=== PATIENT | female | born 1985 | race Caucasian/White ===

== ENCOUNTER 2019-11-22 14:57 | Inpatient (IN) | payer MEDICAID ==
[~2019-11-22] VITALS: Ht 165.1 cm; Wt 81.6 kg
[2019-11-22] MEDS ORDERED: OXYTOCIN 20 UNITS in LACTATED RINGERS 1,000 ML IV SCH (15:30)
[2019-11-22] MEDS ORDERED: MORPHINE SULFATE 10 MG/ML VIAL IVP PRN (15:30)
[2019-11-22] MEDS ORDERED: METHYLERGONOVINE 0.2 MG/ML AMP IM PRN ×2 (15:30→22:45)
[2019-11-22] MEDS ORDERED: LACTATED RINGERS 1,000 ML IV SCH (15:30)
[2019-11-22] MEDS ORDERED: PROMETHAZINE 25 MG/ML VIAL IVP PRN (15:30)
[2019-11-22] MEDS ORDERED: OXYTOCIN 10 UNITS/ML VIAL IM SCH (15:30)
[2019-11-22] MEDS ORDERED: CARBOPROST 250 MCG/ML AMP IM PRN (15:30)
[2019-11-22 16:40] LABS: APPEARANCE,URINE CLEAR (CLEAR); BILIRUBIN,URINE NEGATIVE (NEGATIVE); BLOOD, URINE NEGATIVE (NEGATIVE); COLOR,URINE YELLOW (YELLOW); LEUKOCYTE ESTERASE ,URINE NEGATIVE (NEGATIVE); NITRITE, URINE NEGATIVE (NEGATIVE); UGLUCOSE NEGATIVE (NEGATIVE)
[2019-11-22 16:43] LABS: BASOPHILS % (AUTO) 0.3 % (0.0-2.0); EOSINOPHILS # (AUTO) 0.1 K/uL (0-0.4); EOSINOPHILS % (AUTO) 0.8 % (0.0-4.0); HEMATOCRIT 39.7 % (36-48); HEMOGLOBIN 13.5 g/dL (12.0-16.0); LYMPHOCYTES # (AUTO) 2.5 K/uL (2.5-16.5); LYMPHOCYTES % (AUTO) 25.1 % (20.5-51.1); MEAN CORPUSCULAR HEMOGLOBIN 31 pg (27-31); MEAN CORPUSCULAR HGB CONC 34 g/dL (33-37); MEAN CORPUSCULAR VOLUME 91.3 fL (80-94); MONOCYTES # (AUTO) 0.6 K/uL (0.8-1.0); MONOCYTES % (AUTO) 6.2 % (1.7-9.3); NEUTROPHILS # (AUTO) 6.8 K/uL (1.8-7.7); NEUTROPHILS % (AUTO) 67.6 % (42.2-75.2); PLATELET COUNT (AUTO) 220 K/uL (140-450); RED BLOOD CELL COUNT(AUTO) 4.35 MIL/uL (4.20-5.40); RED CELL DISTRIBUTION WIDTH 13.3 % (11.6-13.7); WHITE BLOOD COUNT (AUTO) 10.1 K/uL (4.8-10.8)
[2019-11-22 16:54] LABS: ALBUMIN 2.7 g/dL (3.4-5.0); ANION GAP 15.5 (8-16); CARBON DIOXIDE 23.3 mmol/L (21-32); CREATININE 0.8 mg/dL (0.6-1.3); POTASSIUM 3.8 mmol/L (3.5-5.1); TOTAL BILIRUBIN 0.3 mg/dL (0.0-1.0)
[2019-11-22] MEDS ORDERED: OXYTOCIN 20 UNITS/LR PREMIX 1,000 ML IV ONE (20:44)
[2019-11-22] MEDS ORDERED: LIDOCAINE 1% 500 MG/50 ML VIAL ONE (22:29)
[2019-11-22] MEDS ORDERED: HYDROcodone/APAP 5/325 MG 1 TAB TAB PO PRN (22:45)
[2019-11-22] MEDS ORDERED: BENZOCAINE/MENTHOL 20%-0.5% 60 GM CAN TP PRN (22:45)
[2019-11-22] MEDS ORDERED: METHYLERGONOVINE 0.2 MG TAB PO PRN (22:45)
[2019-11-22] MEDS ORDERED: OXYTOCIN 10 UNITS/ML VIAL IM PRN (22:45)
[2019-11-22] MEDS ORDERED: SODIUM PHOSPHATE 118 ML ENEM RC PRN (22:45)
[2019-11-22] MEDS ORDERED: TEMAZEPAM 15 MG CAP PO PRN (22:45)
[2019-11-22] MEDS ORDERED: oxyCODONE/APAP 5/325 MG 1 TAB TAB PO PRN (22:45)
[2019-11-22] MEDS ORDERED: IBUPROFEN 800 MG TAB ONE (23:30)
[2019-11-23] MEDS: IBUPROFEN 800 MG TAB PO PRN ×2 (02:19→13:14)
[2019-11-23 06:35] LABS: HEMATOCRIT 35.1 % (36-48); HEMOGLOBIN 11.9 g/dL (12.0-16.0)
--- NOTE | 2019-11-23 09:28 | NUR ---
PATIENT HAS BEEN SCREENED AND CATEGORIZED LOW NUTRITION RISK. PATIENT WILL BE SEEN WITHIN 7 DAYS OF ADMISSION. 11/29/[address]
[2019-11-23] MEDS ORDERED: DOCUSATE SOD/SENNA 50/8.6 MG 1 TAB PO SCH (21:00)
[2019-11-24] MEDS: IBUPROFEN 800 MG TAB PO PRN (03:50)
== END 2019-11-24 11:35 | disposition home or self-care (01) | DRG 560 ==
LOC: MFCC 14:57
PROVIDERS: ADMIT Obstetrics & Gynecology; ATTEND Obstetrics & Gynecology
PROC: 10E0XZZ Delivery of Products of Conception, External Approach (ICD-10-PCS; principal; 2019-11-22)
PROC: 0HQ9XZZ Repair Perineum Skin, External Approach (ICD-10-PCS; 2019-11-22)
DX: O70.0 First degree perineal laceration during delivery (principal); Z37.0 Single live birth; Z3A.38 38 weeks gestation of pregnancy
CPT/HCPCS: 36415; 59409; 80053; 81003; 85018; 85025; 86592; 86886; 86900; 86901; J2001; J2590; J7120